=== PATIENT | female | born 1955 | race Caucasian/White ===

== ENCOUNTER 2025-01-24 10:55 | Emergency (ER) | payer MEDICARE, SELFPAY ==
[2025-01-24 11:04] VITALS: BP 115/78; PULSE 64; RESP 20; TEMP 36.7; O2SAT 100
--- OUTSIDE RECORDS SUMMARY | 2025-01-24 11:05 | XMS_ITS | Encounter Summary ---
Author Organization [facility] Address [address] [place] [address] Phone Care Team Providers Care Senior Reservations Agent Name Role Phone Kehinde Quezada MD Primary Care Provider Radha Wood [place] Primary Care Provider [phone] Kehinde Quezada MD Primary Care Provider Radha Wood [place] Primary Care Provider Altaf Gomez MD Unavailable Roxanne Ramirez MD Unavailable Radha Wood [place] Primary Care Provider Encounter Details Date Type Department Care Team (Late st Contact Info) Description 11/29/2016 Orders Only [facility] [address] [place] [address] Cinthya Pineda Social History Tobacco Use Types Packs/Day Years Used Date Smoking Tobacco: Former Cigarettes Q uit: 06/27/1994 Comments:Smoking History Pac ks/day: 0.5 Packs Alcohol Use Standard Drinks/Week Comments Yes 0 (1 standard drink = 0.6 oz pur e alcohol) Comments Unknown Sex and Gender Information Value Date Recorded Sex Assigned at Not on file Legal Sex Female 12:41 AM MEDIA CENTER ASSISTANT Gender Identity Not on file Sexual Orientation Not on file documented as of this encounter Plan of Treatment Not on file documented as of this encounter Visit Diagnoses Not on filedocumented in this encounter Additional Health Concerns Infection Onset Date Last Indicated Resolved Time COVID: Suspected 04/07/2022 04/07/2022 04/08/2022 3:07 AM CDT documented as of this encounter Care Teams Senior Reservations Agent Relationship Specialty Start Date End Date Kehinde Quezada MD PCP - General 09/24/16 11/01/17 Radha Wood NP PCP - General Family Medicine 11/02/17 11/20/17 Kehinde Quezada MD PCP - General 11/21/17 01/18/18 Radha Wood NP PCP - General Family Medicine 01/19/18 12/05/24 Radha Wood NP [address] [place] [address] PCP - General Family Medicine 12/06/24 Altaf Gomez MD [address] [facility] [address] [place] [id number] Consulting Physician Rheumatology 12/31/21 Roxanne Ramirez MD [address] [place] [address] Certification Engineer Obstetrics and Gynecology 12/31/21 documented as of this encounter
--- OUTSIDE RECORDS SUMMARY | 2025-01-24 11:05 | XMS_ITS | Encounter Summary ---
Author Organization [facility] Address [address] [place] [address] Care Team Providers Care Senior Ux Developer Name Role Phone Kehinde Quezada MD Primary Care Provider [phone] Radha Wood Primary Care Provider [phone] Radha Wood Primary Care Provider [phone] Reason for Visit * Reason Onset Date Comments Surgery Cancellation 04/23/2022 Encounter Details Date Type Department Care Team (Late st Contact Info) Description 04/23/2022 Telephone [facility] [address] [place] [address] Heber De La Cruz MD [address] [place], [place] [id number] Surgery Cancellation Social History Tobacco Use Types Packs/Day Years Used Date Smoking Tobacco: Former Cigarettes Q uit: 05/04/1995 Smokeless Tobacco: Never Alcohol Use Standard Drinks/Week Comments Not Currently 1 (1 standard drink = 0.6 oz pur e alcohol) Comments No Sex and Gender Information Value Date Recorded Sex Assigned at Not on file Legal Sex Female 6:59 AM EDUCATION AND OUTREACH COORDINATOR Gender Identity Not on file Sexual Orientation Not on file documented as of this encounter Functional Status * Is person deaf or have serious hearing difficulty? Answer Date of Assessment Author No 12/05/2020 2:21 AM CDT Zoran Banegas * Is person blind or have serious difficulty seeing? Answer Date of Assessment Author No 12/05/2020 2:21 AM CDT Zoran Banegasah * Does person have serious difficulty walking/climbing stairs? Answer Date of Assessment Author No 12/05/2020 2:21 AM CDT Zoran Banegas ejah * Does person have difficulty dressing/bathing? Answer Date of Assessment Author No 12/05/2020 2:21 AM CDT Zoran Banegasah * Does person have difficulty doing errands alone? Answer Date of Assessment Author No 12/05/2020 2:21 AM CDT Zoran Banegas documented as of this encounter Mental Status * Does person have difficulty concentrating/remembering/making decisions? Answer Entry Date Author No 12/05/2020 2:21 AM CDT Zoran Banegas documented in this encounter Miscellaneous Notes * Telephone Encounter - Ellyn Lucio - 04/23/2022 9:25 AM CDT Pt called in requesting to cx upcoming surgery due to not being able to get medical clearance priorto surgery. Pt states that she will be leaving town for the winter and will callback upon her return to [facility] surgery. Pt denies further needs at this time. documented in this encounter Plan of Treatment Not on file documented as of this encounter Goals Goal Patient Goal Type Associated Problems Recent Progress Patient-Stated? Author Medication Management General On track( 019 11:43 AM CDT) Rosina Sherwood, RN Note: Expected end date: Ongoing Interventions: Take all medications as prescribed Let your doctor know right away about any changes in your medications Make sure to request a refill of your medication at least one week prior to your last dose documented as of this encounter Visit Diagnoses Not on filedocumented in this encounter Care Teams Senior Ux Developer Relationship Specialty Start Date End Date Kehinde Quezada MD PCP - General Family Medicine 07/17/18 07/27/22 Radha Wood APRN-CNP PCP - General 07/28/22 08/25/22 Radha Wood APRN-CNP PCP - General Nurse Practitioner Family 08/26/22 documented as of this encounter
--- OUTSIDE RECORDS SUMMARY | 2025-01-24 11:05 | XMS_ITS | Encounter Summary ---
Author Organization [facility] Address [address] [facility] [place] [address] Care Team Providers Care Airplane Pilot Supervisor Name Role Phone Radha Wood SARMAD-PSYCHIATRIC RN Primary Care Provider [phone] Reason for Visit * Reason Onset Date Comments Treatment 05/10/2024 Seeking Nurse ca ll to discuss lower abdominal pain with; dark urine and back pain, pls call to assist, thank you. Encounter Details Date Type Department Care Team (Late st Contact Info) Description 05/10/2024 Telephone [facility] [address] [address] [place] [address] Heber De La Cruz MD [address] [place] [address] Treatment (Seeking Nurse call to discuss lower abdominal pain with; dark urine and back pain, pls call to assist, thank you.) Social History Tobacco Use Types Packs/Day Years Used Date Smoking Tobacco: Former Cigarettes Q uit: 05/04/1995 Smokeless Tobacco: Never Alcohol Use Standard Drinks/Week Comments Yes 1 (1 standard drink = 0.6 oz pur e alcohol) very rare Comments No Sex and Gender Information Value Date Recorded Sex Assigned at Not on file Legal Sex Female 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 Answer Date of Assessment Author No 12/05/2020 2:21 AM Zoran Mcguire * Is person blind or have serious difficulty seeing? Answer Date of Assessment Author No 12/05/2020 2:21 AM Zoran Mcguire * Does person have serious difficulty walking/climbing stairs? Answer Date of Assessment Author No 12/05/2020 2:21 AM Zoran Mcguire * Does person have difficulty dressing/bathing? Answer Date of Assessment Author No 12/05/2020 2:21 AM Zoran Mcguire * Does person have difficulty doing errands alone? Answer Date of Assessment Author No 12/05/2020 2:21 AM Zoran Mcguire documented as of this encounter Mental Status * Does person have difficulty concentrating/remembering/making decisions? Answer Entry Date Author No 12/05/2020 2:21 AM Zoran Mcguire documented in this encounter Miscellaneous Notes * Telephone Encounter - Ismael Rowley RN - 05/10/2024 9:50 AM CST C/o pain inner pelvic area, left pelvic bone for most of the year. PCP made aware, ordered CT. Found renal cysts and colon full of stool, but nothing else. Dark urine since spring or summer. Urine has been dark colored since spring or early summer. Describes orangy brown color. Able to get urine to turn light yellow w/ recent colonoscopy prep. Drinks 48- 64oz of water / day. Denies any medication that could turn urine this color. Thought issues could be colon related so called GI around October. Finally had Colonoscopy yesterday after one other failed attempt. Didn't find anything concerning. New onset Back pain started week ago about the waist area. Started w/ left hip area. Thought it could be arthritis so ignored at first. Pain traveling a little upward now. Denies fever, chills or antonella blood in urine. C/o feeling tired all the time. Denies nausea. Can eat w/out issues. Advised: Issues are concerning for kidney involvement, but may have other things going on. I recommend going to an ER or Urgent care that can do CT / Xrays. I would also call PCP with symptoms. Explained, Dr De La Cruz is Uro/material distributor so his specialty stops with the bladder. If you're having Kidney issues, you really need to see Urology or possible kidney doctor. Your PCP can guide you. She agrees to plan. In the meantime, can try a fluid challenge - drink enough to get urine to turn clear yellow. Make anote of how much it takes and this is how much you really need drink daily. TER * Telephone Encounter - Ismael Rodriguez - 05/10/2024 9:03 AM CST Seeking Nurse call to discuss lower abdominal pain with; dark urine and back pain, pls call to assist, thank you. TER documented in this encounter Plan of Treatment Not on file documented as of this encounter Goals Goal Patient Goal Type Associated Problems Recent Progress Patient-Stated? Author Medication Management General On track( 019 11:43 AM CDT) Rosina Sherwood RN Note: Expected end date: Ongoing Interventions: Take all medications as prescribed Let your doctor know right away about any changes in your medications Make sure to request a refill of your medication at least one week prior to your last dose documented as of this encounter Visit Diagnoses Not on filedocumented in this encounter Care Teams Airplane Pilot Supervisor Relationship Specialty Start Date End Date Radha Wood APRN-CNP PCP - General Nurse Practitioner Family 08/26/22 documented as of this encounter
--- OUTSIDE RECORDS SUMMARY | 2025-01-24 11:05 | XMS_ITS | Clinical Summary ---
Author Organization [facility] Address [address] [place] [address] Phone Care Team Providers Care Occupational Physician Name Role Phone Funmilayo Holloway APRN, RF TECHNICIAN Unavailable [phone] Radha Wood APRN, RF TECHNICIAN Primary Care Provider Allergies Active Allergy Reactions Criticality Noted Date Comments Codeine Hives,Diarrhea,Rash, Nausea ,Vomiting Prednisone Other (see Comments) High Severe headache Sulfa Antibiotics Hives,Rash High Medications pravastatin (PRAVACHOL) 40 MG Tablet Take 40 mg by mouth every evening. Active Adalimumab (HUMIRA) 40 MG/0.8ML Prefilled Syringe Kit by Subcutaneous route once a week. Tuesday due Active methotrexate 2.5 MG Tablet Take 25 mg by mouth every 7 days TAKES 2.5MG , 10 TABS Equals 25mg total once per week TUESDAY Active fish oil-omega-3 fatty acids 1000 MG Capsule Take 3,000 mg by mouth daily. Active Multiple Vitamin (MULTI-VITAMIN S) Tablet Take by mouth daily. Takes 2 chewables daily. Active Calcium Carb-Cholecalc iferol (CALCIUM + D3) 600-200 MG-UNIT Tablet Take 1 Tab by mouth daily. Active allopurinol (ZYLOPRIM) 300 MG Tablet Take 300 mg by mouth daily. Active meloxicam (MOBIC) 7.5 MG Tablet Take 15 mg by mouth daily. Active atenolol (TENORMIN) 50 MG Tablet Take 50 mg by mouth daily. Active nebivolol (BYSTOLIC) 2.5 MG Tablet Take 2.5 mg by mouth daily. Active triamterene-hy drochlorothiaz jocelin (DYAZIDE) 37.5-25 MG Capsule Take 1 Cap by mouth daily. 03/30/20 16 Active methocarbamol (ROBAXIN) 500 MG TabletIndicati ons:Musculoske letal Pain Take 500 mg by mouth daily. Indications: Musculoskeletal Pain Active temazepam (RESTORIL) 15 MG Capsule 15 mg nightly. 1 05/12/20 16 Active FLUoxetine (PROZAC) 20 MG CapsuleIndicat ions:Depressio n Take 20 mg by mouth daily. Indications: Depression 04/02/20 16 Active Pyridoxine HCl (VITAMIN B6) 200 MG Tablet Take 1 Tab by mouth daily. Active vitamin b-12 (CYANOCOBALAMI N) 500 MCG Tablet Take 500 mcg by mouth daily. Active hydroxychloroq uine (PLAQUENIL) 200 MG Tablet Take 200 mg by mouth 2 times daily. Active Probiotic Product (PROBIOTIC ADVANCED PO) Take 1 Tab by mouth daily. Active Cholecalcifero l (VITAMIN D-3) 400 UNIT Tablet Take 1 Tab by mouth daily. Active Calcium Carbonate-Lay min D (CALCIUM-VITAM IN D) 600-125 MG-UNIT Tablet Take 1 Tab by mouth 2 times daily. Active LORazepam (ATIVAN) 0.5 MG Tablet Take 0.5 mg by mouth nightly as needed. Active DULoxetine (CYMBALTA) [address] Particles 60 mg daily. 05/30/20 19 Active sucralfate (CARAFATE) 1 GM Tablet Take 1 g by mouth 4 times daily as needed. Active Hyoscyamine Sulfate SL 0.125 MG SL Tablet 0.125 mg by Sublingual route. 06/16/20 20 Active B Complex Vitamins (VITAMIN B COMPLEX PO) Take by mouth daily. Over the counter dosage pharmacy please review meds to clarify Active Dexilant 60 MG CAPSULE DELAYED RELEASE Take 60 mg by mouth daily. 90 Capsule 1 12/09/19 21 Active Active Problems Problem Noted Date Diagnosed Date Small bowel obstruction 12/04/2020 Dysphagia Wen's esophagus Ulcerative colitis Colon polyps Immunizations Immunization Administration Dates Next Due Influenza Vaccine, Quadrivalent, PF 04/09/2019 Influenza, Injectable, Quadrivalent 07/27/2016 Family History Medical History Relation Name Comments Cancer Brother Cancer Father skin cancer Diabetes Father Stroke Father Breast Cancer Mother Relation Name Status Comments Brother Alive Julianna'charley Diseas e Father Mother Alive Social History Tobacco Use Types Packs/Day Years Used Date Smoking Tobacco: Former Cigarettes 1 21 1 08/08/1973 - 06/07/1995 Smokeless Tobacco: Never Tobacco Cessation:Counseling Given: No Alcohol Use Standard Drinks/Week Comments Not Currently 1 (1 standard drink = 0.6 oz pur e alcohol) Sexually Active Control Partners Comments Not Currently Comments No Sex and Gender Information Value Date Recorded Sex Assigned at Not on file Legal Sex Female 9:48 PM CDT Gender Identity Not on file Sexual Orientation Not on file 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 Not on file Not on file Not on file Last Filed Vital Signs Vital Sign Reading Time Taken Comments Blood Pressure 126/77 02/22/2022 3:46 PM CDT Pulse 80 02/22/2022 3:46 PM CDT Temperature 36.6 C (97.8 F) 02/22/2022 10:49 AM CDT Respiratory Rate 18 02/22/2022 3:46 PM CDT Oxygen Saturation 98% 02/22/2022 3:46 PM CDT Inhaled Oxygen Concentration - - Weight 67.1 kg (148 lb) 02/22/2022 10:49 AM CDT Height 170.2 cm (5' 7) 02/22/2022 10:49 AM CDT Body Mass Index 23.18 02/22/2022 10:49 AM CDT Plan of Treatment Health Maintenance Due Date Last Done Comments Hepatitis C Virus (HCV) Screening 1955 Zoster Immunization (1 of 2) 02/06/1976 Cologuard 2002 Immunochemical Fecal Occult Blood 2002 Pneumococcal Immunization (50+ years) (1 of 1 - PCV) 2007 Respiratory Syncytial Virus (RSV) Immunization (Adult) (1 - Risk 60-74 years 1-dose series) 2017 Colonoscopy 09/27/2018 09/27/2016, 03/06/2014 Colorectal Cancer Screening 09/27/2018 SARS-COV-2 Immunization (3 - Moderna risk series) 12/12/2020 11/14/2020, 10/14/2020 Influenza Immunization (#1) 02/25/202504/27, 04/09/2019, 07/27/2016, Additional history exists DTaP/Tdap/Td Immunization Discontinued 2017, 01/08/2016, 02/09/2008 TdaP Immunization Completed 11/18/2017, 01/08/2016 Mammogram Discontinued 06/04/2020 Hepatitis B Immunization Aged Out No longer eligible based on patient's age to complete this topic Human Papillomavirus (HPV) Immunization Aged Out No longer eligible based on patient's age to complete this topic Meningococcal Immunization (ACWY) Aged Out No longer eligible based on patient's age to complete this topic Rotavirus Immunization Aged Out No lo nger eligible based on patient's age to complete this topic Procedures Procedure Name Priority Date/Time Associated Diagnosis Comments HM COLONOSCOPY Routine 03/06/2014 from Last 3 Months or Most Recently Relevant to Health Maintenance Results * HM COLONOSCOPY (03/06/2014) Sarita Majano DO PROCEDURE/MINOR SURGICAL ORDERABLES Final Result from Last 3 Months or Most Recently Relevant to Health Maintenance Insurance [facility] [[email or web address]] MEDICARE C AET[employer] Advance Directives Documents on File Type Date Recorded Patient Airplane Rigger Expl jose Living Will 06/24/2017 9:03 AM [place] Declaration Other Advance Directive 06/24/2017 9:02 AM Self-Proving Affidav it Power of Geographic Analyst for Health Care 06/24/2017 9:01 AM [place] POA For Healthcare * Full Code (Latest Code Status on File) Date Activated Date Inactivated Comments 12/04/2020 10:03 PM 12/05/2020 1:32 PM CPR-Full Tr eatment: FULL ARREST: Attempt Resuscitation/CPR wit intubation and mechanical ventilation. PRE-ARREST: Use entire range of life support measures to stabilize the patient. * Full Code Date Activated Date Inactivated Comments 12/04/2020 7:58 PM 12/04/2020 10:03 PM CPR-Full Tr eatment: FULL ARREST: Attempt Resuscitation/CPR wit intubation and mechanical ventilation. PRE-ARREST: Use entire range of life support measures to stabilize the patient. Care Teams Occupational Physician Relationship Specialty Start Date End Date Radha Wood APRN, RF TECHNICIAN 2 [facility] [address] [address] PCP - General Advanced Practice Nurse 02/22/22 Funmilayo Holloway APRN, RF TECHNICIAN Nurse Practitioner Advanced Practice Nurse 06/10/16
--- OUTSIDE RECORDS SUMMARY | 2025-01-24 11:05 | XMS_ITS | Clinical Summary ---
Author Organization [facility] [employer] Address [address] [place] [address] Care Team Providers Care Entry Level Staff Accountant Name Role Phone Radha Wood SARMAD-STRUCTURAL STEEL TRADES WORKER Primary Care Provider [phone] Source Comments [facility],non-owned Affiliates and Associated Physician Practices is amultiple site organization consisting of ambulatory clinics and hospital sitesin [place], [place], [place] and [place]. This disclosure is being madepursuant to the Care Everywhere program and may not contain all information available regarding this patient. Last updated 18.[facility] Allergies Active Allergy Reactions Criticality Noted Date Comments Codeine Other 07/25/2012 CHEST DISCOMFORT Prednisone Headache,Nausea and/ or Vomiting,Other,Vomiting High Severe headache Reaction: Nausea, Vomiting, , Reaction: nausea & other symptoms, Sulfa Drugs Rash Low 07/25/2012 Medications * Be aware that medications may not be up to date on this document. Alwaysverify current medications with the patient. FLUoxetine (PROZAC) 20 MG capsule Take 1 (one) capsule by mouth once daily Active methotrexate 2.5 MG tablet Take 10 (ten) tablets by mouth every 7 days Active Windthorst-3 Fatty Acids (OMEGA-3 FISH OIL) 1000 MG capsule Take 3 (three) capsules by mouth once daily Active temazepam (RESTORIL) 15 MG capsule Take 1 (one) capsule by mouth nightly as needed for Insomnia Active Multiple Vitamins-Minera ls (BARIATRIC MULTIVITAMINS/I HERNNA PO) Take by mouth once daily Active allopurinol (ZYLOPRIM) 300 MG tablet Take 1 (one) tablet by mouth once daily 03/30/2020 Active methocarbamol (ROBAXIN) 500 MG tablet 1 (one) tablet nightly as needed 04/23/2020 Active sucralfate (Carafate) 1 GM/10ML suspension Take 10 mL by mouth 4 times daily 1200 mL 2 05/05/2022 Active hydroxychloroqu ine (Plaquenil) 200 MG tablet Take 1 (one) tablet by mouth once daily 07/25/2022 Active DULoxetine (Cymbalta) 60 MG capsule 08/14/2022 Active oxyCODONE, immediate release, (Roxicodone) 5 MG tabletIndicatio ns:Postoperativ e state Take 1 (one) tablet by mouth every 4 hours as needed for Pain 10 tablet 09/01/2022 Active polyethylene glycol 3350 (Miralax) 17 GM/SCOOP powder Take 17 (seventeen) g by mouth once daily 289 g 09/01/2022 Active ibuprofen (Motrin) 600 MG tablet Take 1 (one) tablet by mouth every 6 hours as needed for Pain 20 tablet 1 09/01/2022 Active pantoprazole EC (Protonix) 40 MG tablet TAKE 1 TABLET TWICE A DAY 180 tablet 07/07/2023 Active Active Problems Problem Noted Date Diagnosed Date S/P gastric bypass 07/17/2018 Encounters Date Type Department Care Team Description 11/06/2024 12:27 PM CDT - 11/06/2024 11:59 PM CDT Hospital Encounter [facility] Imaging Services - Radiology [address] [place], [place] [id number] Discharge Disposition: Home or Self Care from Last 3 Months Immunizations Immunization Administration Dates Next Due INFLUENZA VACCINE, TRIV. (AF LURIA, FLUZONE TRIVALENT; 6MO+) (IIV3) 03/29/2014,04/04/2009 FLU VACCINE QUAD IIV4 SPLIT 0.25 ML IM 07/27/2016 INFLUENZA VACCINE 07/27/2012 INFLUENZA VACCINE, QUADR. (F LUZONE; FLULAVAL; FLUARIX; AFLURIA QUADRIVALENT; 6MO+), 0.5 ML (IIV4) 04/09/2019 RABIES VACCINE IM FIBROBLAST CULTURE ,12/02/2017,11/23/2017,2017,11/18/2017 TDAP (7yrs+) 11/18/2017,01/08/2016 Td (Adult), 2 Lf Tetanus Tox oid, Adsorbed, Pf 02/09/2008 Family History Medical History Relation Name Comments Diabetes Father Cancer - Breast Mother Hypertension Mother Osteoporosis Mother Other Mother A-fib Relation Name Status Comments Father Mother Social History Tobacco Use Types Packs/Day Years Used Date Smoking Tobacco: Former Cigarettes Q uit: 05/04/1995 Smokeless Tobacco: Never Tobacco Cessation:Counseling Given: Not Answered Alcohol Use Standard Drinks/Week Comments Yes 1 (1 standard drink = 0.6 oz pur e alcohol) very rare Comments No Sex and Gender Information Value Date Recorded Sex Assigned at Not on file Legal Sex Female 6:59 AM PUBLISHING DIRECTOR Gender Identity Not on file Sexual Orientation Not on file Last Filed Vital Signs Vital Sign Reading Time Taken Comments Blood Pressure 125/82 09/01/2022 12:04 PM PUBLISHING DIRECTOR Pulse 63 09/01/2022 12:04 PM PUBLISHING DIRECTOR Temperature 36.5 C (97.7 F) 09/01/2022 10:25 AM PUBLISHING DIRECTOR Respiratory Rate 16 09/01/2022 12:04 PM PUBLISHING DIRECTOR Oxygen Saturation 98% 09/01/2022 12:04 PM PUBLISHING DIRECTOR Inhaled Oxygen Concentration - - Weight 71.2 kg (157 lb) 09/01/2022 7:00 AM PUBLISHING DIRECTOR Height 170.2 cm (5' 7) 09/01/2022 7:00 AM PUBLISHING DIRECTOR Body Mass Index 24.59 09/01/2022 7:00 AM PUBLISHING DIRECTOR Plan of Treatment Health Maintenance Due Date Last Done Comments COLOGUARD (AGES 45-75) - COLON CA SCREENING 1957 CT COLONOGRAPHY - COLON CA SCREENING 1955 FIT - COLON CA SCREENING 1957 FLEX SIG - COLON CA SCREENING 1955 HEPATITIS C SCREENING 02/01/1975 PNEUMOCOCCAL VACCINE 50+ (1 of 1 - PCV) 2007 ZOSTER VACCINE (1 of 2) 2007 LIPID TESTING 07/08/2014 07/08/2009, 06/01/2009, 05/29/2008 COVID-19 VACCINE ( season) 2024 11/14/2020, 10/14/2020 DEPRESSION SCREENING 06/27/2024 MEDICARE AWV CALENDAR YEAR 2024 MAMMOGRAM 07/21/2024 07/21/2022, 06/28, 05/18/2021, Additional history exists INFLUENZA VACCINE (#1) 2025 , 05/11/2021, 04/09/2019, Additional history exists DTAP/TDAP/TD VACCINES (3 - Td or Tdap) 11/19/2027 11/18/2017, 01/08/2016, 02/09/2008 Respiratory Syncytial Virus (RSV) Vaccine Pt: or over 60 yrs (1 - 1-dose 75+ series) 02/06/2032 COLON MONITORING 05/09/2034 05/09/2024 COLONOSCOPY - COLON CA SCREENING 05/09/2034 05/09/2024, 09/27/2016 (Done Outside Per Report) Colorectal Cancer Screening 05/09/2034 BONE DENSITY TESTING Completed 06/04/2024, 04/22/20 22 HEPATITIS B VACCINE Aged Out No longe r eligible based on patient's age to complete this topic HIB VACCINE Aged Out No longer eligi ble based on patient's age to complete this topic HPV VACCINE Aged Out No longer eligi ble based on patient's age to complete this topic MENINGOCOCCAL (Group B) VACCINE SHARED DECISION-MAKING Aged Out No longer eligible based on patient's age to complete this topic MENINGOCOCCAL GROUPS A/C/Y/W VACCINE Aged Out No longer eligible based on patient's age to complete this topic Goals Goal Patient Goal Type Associated Problems Recent Progress Patient-Stated? Author Medication Management General On track( 019 11:43 AM CDT) No Rosina Patel, RN Note: Expected end date: Ongoing Interventions: Take all medications as prescribed Let your doctor know right away about any changes in your medications Make sure to request a refill of your medication at least one week prior to your last dose Medical Devices Implanted Type Area Hospitality Host Device Identifier Shelf Expiration Date Model / Serial / Lot Grft Tiss Rep Xenform 4 X 7cm Implanted:Qty: 1 on 07/26/2012 by Heber De La Cruz MD at [facility] N/A: Vagina [employer] 05/27/2014 [id number] 0 / [id number] / [id number] Dev Sys Sgl Obtryx - [id number] Implanted:Qty: 1 on 07/26/2012 by Heber De La Cruz MD at [facility] N/A: Vagina 03/27/2015 [id number] 0 / [id number] / [id number] Bulkamid Implanted:Qty: 1 on 09/01/2022 by Heber De La Cruz MD at [facility] N/A: [employer] 04/26/2025 [id number] / / [id number] Procedures Procedure Name Priority Date/Time Associated Diagnosis Comments XR LUMBAR SPINE 2 OR 3VW Routine 11/06/2024 12:49 PM CDT Rheumatoid arthritis with rheumatoid factor of 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 Edited by Kaylen Hudson on 11/06/2024 1:14 PM > Interpreting Provider: Vincent Maria MD on 11/06/2024 1:38 PM Narrative 11/06/2024 1:38 PM CDT PROCEDURE: XR LUMBAR SPINE 2 OR 3VW DATE/TIME OF EXAM: 11/06/2024 12:49 PM INDICATION: M05.79: Rheumatoid arthritis with rheumatoid factor of multiple sites without organ or systems involvement (HCC). G47.00: Insomnia, unspecified. M54.50: Low back pain, unspecified. Additional History: COMPARISON: None. FINDINGS: Three views of the lumbar spine show right convex thoracolumbar scoliosis. Bony demineralization is present. Endplate degenerative changes are present. There is intervertebral disc space narrowing of L2-3 and L3-4. No definite acute displaced fracture or subluxation is present. Surgical clips are seen in the abdomen. Procedure Note Vincent Maria MD - 11/06/2024 PROCEDURE: XR LUMBAR SPINE 2 OR 3VW DATE/TIME OF EXAM: 11/06/2024 12:49 PM INDICATION: M05.79: Rheumatoid arthritis with rheumatoid factor ofmultiple sites without organ or systems involvement (HCC). G47.00: Insomnia, unspecified. M54.50: Low back pain, unspecified. Additional History: COMPARISON: None. FINDINGS: Three views of the lumbar spine show right convex thoracolumbarscoliosis. Bony demineralization is present. Endplate degenerative changes are present. There is intervertebral disc space narrowing of L2-3 and L3-4.No definite acute displaced fracture or subluxation is present. Surgicalclips are seen in the abdomen. IMPRESSION: Scoliosis and degenerative changes. Edited by Kaylen Hudson on 11/06/2024 1:14 PM > Interpreting Provider: Vincent Maria MD on 11/06/2024 1:38 PM Racheal Camarena REFRACTORY WORKER-STRUCTURAL STEEL TRADES WORKER DIAGNOSTIC IMAGING ORDE JESSE Final Result * LIPID PROFILE (07/08/2009 10:25 AM PUBLISHING DIRECTOR) Cholesterol 191 120.0 - 200.0 mg/dl [facility] Triglycerides 114 0.0 - 250.0 mg/dl [facility] HDL Cholesterol 44 >40 mg/dl [facility] LDL Calculated 124.2 mg/dl [facility] Chol HDL Ratio 4.3 [facility] Comment Lipid [facility] Comment: Risk Classification HDL CHOL LDL CHOL TOTAL CHOL According to NCEP (mg/dl) (mg/dL) (mg/dl) Desirable >40 <130 < 200 Borderline/High - 130-159 200-239 High - >159 > 239 The total cholesterol to HDL cholesterol ratio may be used to predict risk for coronary heart disease in untreated patients according to data reported from the [place] Study by Chino Yanick, M.D. The predictive value in patients over 60 years of age is uncertain. Risk TOTAL CHOL/HDL RATIO MEN WOMEN 1/2 Average 3.43 3.27 Average 4.97 4.44 2X Average 9.55 7.05 3X Average 23.39 11.04 In Coronary Artery Disease patients, in whom nonpharmacological therapy has failed, the AHA recommends that drug therapy should be prescribed to lower LDL cholesterol to <100mg/dL. Drug therapy may be instituted in patients with HDL <35mg/dL. The reported LDL is a calculated result. For a more precise measurement, a direct LDL test is available, as necessary. BLOOD SPECIMEN / Unknown 07/08/2009 10:25 AM PUBLISHING DIRECTOR 07/08/2009 10:31 AM PUBLISHING DIRECTOR Edgar Ocasio MD LAB - CHEMISTRY ORDERABLE S Final Result [facility] [address] [place] [address] from Last 3 Months or Most Recently Relevant to Health Maintenance Insurance [address] [place] [id number] A[employer] MEDICARE ADV [address], [place] [id number] [facility] Advance Directives * Full Code (Latest Code Status on File) Date Activated Date Inactivated Comments 07/17/2018 8:44 PM 07/18/2018 6:52 PM * FULL RESUSCITATION Date Activated Date Inactivated Comments 07/26/2012 4:55 PM 07/27/2012 4:02 PM * FULL RESUSCITATION Date Activated Date Inactivated Comments 07/26/2012 11:47 AM 07/26/2012 4:55 PM Care Teams Entry Level Staff Accountant Relationship Specialty Start Date End Date Radha Wood APRN-BOSSMAN PCP - General Nurse Practitioner Family 08/26/22
--- OUTSIDE RECORDS SUMMARY | 2025-01-24 11:05 | XMS_ITS | Encounter Summary ---
Author Organization [facility] Address [address] [facility] [place] [address] Phone Care Team Providers Care Tungsten Refiner Name Role Phone Funmilayo Holloway APRN, PROJECT DRILLING ENGINEER Unavailable [phone] Kehinde Quezada MD Primary Care Provider Radha Wood APRN, PROJECT DRILLING ENGINEER Primary Care Provider Reason for Visit * Reason Comments Medication Refill Encounter Details Date Type Department Care Team (Late st Contact Info) Description 05/26/[address] [facility] - Gastroenterology - [address] [place] [address] Lashaun Schwartz Evelyn, PAC [address] [place] [address] Medication Refill Social History Tobacco Use Types Packs/Day Years Used Date Smoking Tobacco: Former Cigarettes 1 21 1 08/08/1973 - 06/07/1995 Smokeless Tobacco: Never Alcohol Use Standard Drinks/Week [...] file Not on file Not on file documented as of this encounter Miscellaneous Notes * Telephone Encounter - Lorraine Welch, RN - 05/26/2020 1:11 PM CST Pharmacy requesting: Requested Prescriptions Pending Prescriptions Disp Refills ??? Dexilant 60 MG CAPSULE DELAYED RELEASE [Pharmacy Med Name: DEXILANT DR CAPS 60MG] 30 Cap 11 Sig: TAKE 1 CAPSULE DAILY Last refill from office: 03/18/20 Last filled at pharmacy: 03/19/20 Last OV: 06/11/19 Next OV: 06/16/20 YMAN documented in this encounter Plan of Treatment Not on file documented as of this encounter Visit Diagnoses Not on filedocumented in this encounter Additional Health Concerns Infection Onset Date Last Indicated Resolved Time COVID - 19 12/04/2020 12/04/2020 12/05/2020 6:47 AM CDT Respiratory Rule-Out 12/04/2020 12/04/2020 021 4:30 PM CDT documented as of this encounter Care Teams Tungsten Refiner Relationship Specialty Start Date End Date Kehinde Quezada MD [address] [place] [address] PCP - General Family Medicine 09/27/16 02/21/22 Radha Wood CLIMATOLOGY PROFESSOR, PROJECT DRILLING ENGINEER [address] [place] [address] [address]AI[address] [place] [id number] PCP - General Advanced Practice Nurse 02/22/22 Funmilayo Holloway APRN, PROJECT DRILLING ENGINEER Nurse Practitioner Advanced Practice Nurse 06/10/16 documented as of this encounter
--- OUTSIDE RECORDS SUMMARY | 2025-01-24 11:05 | XMS_ITS | Patient Health Record ---
Author Organization [facility] [employer] Address [address] [place] [address] Care Team Providers Care Miniature Set Builder Name Role Phone Azam Borrego Unavailable [phone] Reason For Referral No Information Medications Medication SIG (Take, Route, Fr equency, Duration) Notes Start Date End Date Status FLUoxetine HCl 40 MG Oral 03/27/2019 Active Multivitamin Adults Oral 03/27/2019 Active LORazepam 0.5 MG Oral 03/27/2019 Ac tive Plan Of Treatment No Information Insurance Providers Payer Name Payer Address Payer Phone Subscriber Number Group Number Insured Name Patient Relationship to Insured Coverage Start Date Coverage End Date [employer]cbs-[place] -do not use [address] [address] [place] [address] [id number] MORAIMA JEFFREY Self - patient is the insured Medical (General) History Surgical History Surgery Date(Month/Year) Cholecystectomy ([id number])
--- OUTSIDE RECORDS SUMMARY | 2025-01-24 11:05 | XMS_ITS | Referral Summary ---
Author Organization [facility] Address [address] [place] [address] Care Team Providers Care Registration Specialist Name Role Phone Altaf Gomez MD Unavailable [phone] Roxanne Ramirez MD Unavailable Radha Wood NP Primary Care Provider [phone] Encounters Date Type Department Care Team Description 01/24/2025 Nurse Triage [facility] Primary Care at [address] [address] Radha Wood NP 11/29/2024 Results Follow-Up [facility] Medical [facility] Primary Care at [address] [address] Teresa Koehler NP Screening Mammogram Bilateral W Car 11/29/2024 2:55 PM CDT - 11/29/2024 11:59 PM CDT Hospital Encounter [facility] [address] [place] [address] Discharge Disposition: Discharge to home or self care 11/23/2024 10:00 AM CDT Office Visit [facility] [address] [facility] [address] [place] [id number] Lena Brito MD Psychophysiological insomnia (Primary Dx); KRYS (obstructive sleep apnea); Hypersomnia with sleep apnea from Last 3 Months Allergies Active Allergy Reactions Criticality Noted Date Comments Codeine Rash,Chest tightness,Diarrhea,H kiki,Nausea only,Vomiting Medium 07/25/2012 CHEST DISCOMFORT Reaction: Rash, Prednisone Nausea only,Vomiting,Other (See comments),Headache,N ausea & Vomiting High Severe headache Reaction: Nausea, Vomiting, , Reaction: nausea & other symptoms, Severe headache Reaction: Nausea, Vomiting, , Reaction: nausea & other symptoms, Sulfa (Sulfonamide Antibiotics) Rash Reaction: rash, , Reaction: Rash, , Reaction: Rash, Sulfanilamide Medications multivitamin tablet tablet Take one by mouth one time per day 0 0 05/19/2009 Active methotrexate 2.5 mg tablet 10 weekly 0 0 05/28/[address] (PROTONIX) 40 mg EC tablet 03/26/[address] (VOLTAREN) 75 mg EC tablet Take 2 tablets (150 mg total) by mouth 2 (two) times a day 05/18/2023 Active sulfaSALAzine (AZULFIDINE) 500 mg tablet Take 2 tablets (1,000 mg total) by mouth 2 (two) times a day 05/14/[address] (CYMBALTA) 60 mg capsule Take 1 capsule (60 mg total) by mouth daily 90 capsule 3 06/08/2023 Active docosahexaenoic acid-epa (Fish OiL) 120-180 mg capsule Take by mouth Active FLUoxetine (PROzac) 20 mg capsule TAKE 1 CAPSULE DAILY 90 capsule 3 05/28/2024 Active Active Problems Problem Noted Date Diagnosed Date Dental abscess 09/18/2024 Ulcerative (chronic) proctitis without complicat ions 05/15/2024 Hx of colonic polyps 03/05/2024 Left sided abdominal pain 08/31/2023 Assessment & Plan (12/24/2023 8:44 PM CDT): Left sided abdominal pain in the mornings with taking pills, better after eating, no reflux, heartburn, dysphagia or odynophagia Takes pantoprazole 40 mg BID 2-3 small BM's daily with incomplete evacuation No melena or hematochezia 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 Feels hungry even after eating, gaining weight again No NSAID use No known family history of colon cancer, liver disease, inflammatory bowel disease, or other GI pathologies No smoking, ETOH or illicit drug use Annual EGD's since 2016 for long segment of Barretts esophagus C4M5 without dysplasia Most recent EGD from 12/2020 showed normal esophagus, gastric bypass pouch 4.5 cm in length with healthy-appearing GJ anastomosis Colonoscopy from 09/2016 showed one tubular adenoma in cecum and normal colon bx Labs from 08/2023 showed mildly elevated BUN of 41 otherwise normal CMP, macrocytosis without anemia CT abdomen pelvis without contrast 08/2023 showed large stool burden and short-segment of dilated loop of small bowel in the left upper quadrant with contrast seen distal to the segment, similar to findings from 2019 Plan Supposedly was diagnosed with UC previously, last colonoscopy from 2016 showed normal colon bx, however patient was on Humira that time for RA Pain could be from marginal ulcer, gastritis, constipation, visceral hypersensitivity Currently on Simponi, sulfasalazine, MTX and placquenil that should all cover UC, so it is less likely her pain is from that. Will schedule colonoscopy for further evaluation. Will obtain recent labs from chief marketing officer office Assessment & Plan (08/31/2023 3:29 PM GTA): CBC CMP and urinalysis will be done today. Differential includes UTI, adhesions, diverticulitis, UC. I suspect diverticulitis but she has no history. Order CT abdomen and pelvis stat, likely be done tomorrow since he is later in the afternoon but patient is stable at this time. Will call patient with results KRYS (obstructive sleep apnea) 08/15/2023 Chronic left-sided low back pain with left-sided sciatica 12/02/2022 Assessment & Plan (12/02/2022 8:23 PM CDT): Was told by rheumatology that her pain was sciatica. Will start with x-ray of lumbar spine. Decreased pedal pulses 11/02/2022 Assessment & Plan (11/02/2022 10:28 AM CDT): TANA US ordered, will follow. PAD (peripheral artery disease) 09/14/2022 Assessment & Plan (11/02/2022 10:29 AM CDT): H/o mild PAD. US TANA ordered. Incomplete right bundle branch block (RBBB) 0 01/2022 Assessment & Plan (01/01/2022 2:59 PM CDT): Abnormal EKG, referred on to cardiology for further evaluation management. Slow transit constipation 05/11/2021 Assessment & Plan (05/11/2021 1:43 PM GTA): Gave copy of constipation guidelines. Recommended milk of magnesia in Prune juice warmed up. Recommended MiraLax daily. Moderate episode of recurrent major depressive d isorder 03/07/2019 Assessment & Plan (06/12/2023 1:47 PM GTA): Stable. Continue duloxetine. Assessment & Plan (11/30/2022 4:03 PM CDT): Stable on current medication. Continue duloxetine and fluoxetine as ordered. May follow up in 6 months Assessment & Plan (07/27/2022 8:54 PM GTA): Stable on current medication. Seeing Surjit [place], psychiatrist. Assessment & Plan (04/10/2022 7:21 PM CDT): Stable. Sees psychiatry. Refilled fluoxetine Assessment & Plan (05/11/2021 1:47 PM GTA): Stable on current medication. Continue lorazepam and duloxetine and Prozac. as ordered. May follow up in 6 months Assessment & Plan (05/16/2019 9:26 AM GTA): Improving. She has been able to make some life decisions for herself. I encouraged her to get her brother and sister on board to help with care of her mother and wished her luck. She is going to let me know her needs for follow-up care Assessment & Plan (04/09/2019 9:42 AM CDT): Will keep her on Cymbalta 20 mg once daily. Will re-at fluoxetine 10 mg once daily. Will also renew lorazepam 0.5 mg b.i.d. P.r.n.. She has already looked that Memory Care units for her mother. She has the support of her brother to put her mother in memory care but she knows this is going to be a hard process and she is concerned about the back lash from her mother. Her goal is within the next 6-12 months to have her mother placed. Will have her follow up in another 1 month for recheck. She is also called her insurance for list of providers that take her insurance for Psychiatry Assessment & Plan (03/08/2019 4:12 PM CDT): Thinks seeing a counselor and psychiatrist is a good idea. Will place referral. Will decrease prozac to 20mg x 14 days. Will start effexor xr 75mg daily . Have her f/u in 1 month for recheck S/P gastric bypass 07/17/2018 Assessment & Plan (03/13/2020 1:55 PM CDT): Between the bypass and covid patient has lost a considerable amount of weight. I do not feel anything unusual other than her normal anatomy. I believe she is feeling her normal coccyx. Reassurance given this is not unusual after weight loss Annual physical exam 12/02/2017 Assessment & Plan (06/12/2023 1:50 PM GTA): -Recommended: Healthy, prudent diet. Avoiding junk food/fast food. -30 minutes of exercise most days of the week. Increase to 45 minutes for weight loss. -Mammogram every 1 year, starting at age 40; regular self breast & skin examinations (1 week after cycle begins) -Regular gynecologic examinations with pelvic exam & PAP smear every 3-5 years if you have not had a hysterectomy (does have a shipping specialist), -Periodic blood pressure monitoring, & bone-density testing (starting at age 65 in average-risk person) -Colonoscopy at age 47 and further colonoscopys pending GI recs. , alternative cologuard Up to date -Influenza vaccine every year given today Up to date, see immunization history -F/u in 1 year for Annual PE or sooner if needed -Labs as ordered Anxiety 11/29/2016 Assessment & Plan (11/30/2022 4:03 PM CDT): Stable with duloxetine and fluoxetine. Patient has not been using lorazepam very often as she mostly uses Restoril at bedtime for sleep. Assessment & Plan (03/19/2019 10:03 AM CDT): Difficult to say whether she is having side effects from decreasing the Prozac or from starting Effexor. Will have her finish out the 2 doses of Prozac 20 milligrams. Then decrease her to Prozac 10 milligrams daily for another 14 days. Will have her stop the Effexor 75 milligrams. I told her our goal is to get her off the Prozac since it seemed to not be working for her previously. She mentioned her daughter is on Cymbalta and does well with that. Will go ahead and try Cymbalta started her on 20 milligrams daily. I think this will get her through to seeing the psychiatrist nurse practitioner at the beginning of March. She may call or come in before then if needed. Patient changes and follow-up if needed Assessment & Plan (09/11/2018 8:38 PM CDT): Continue current medications. Assessment & Plan (06/14/2018 4:32 PM GTA): Will continue Prozac at current dosage. Discuss trying lorazepam to take as needed. Her discussed when to take medication. Patient voiced understanding follow-up for next regular visit Assessment & Plan (03/15/2018 10:06 AM CDT): Patient believes that she is going to try to move back home for while. She only lives a mi away so she can come over in the morning and make sure she takes her medication. She works from home in the evenings from 06/28 11:00 p.m.. She could have her brother or her daughter come over in the evening to give her mother her evening medications. Her mother it tends to sleep all night and does not cause problems at night. We will also increase her Zoloft to 1 and half tablets daily. She is sees the lorazepam every so often for anxiety. Will have her follow up in 3 months as needed. Assessment & Plan (02/10/2018 6:36 PM CDT): She has been on fluoxetine for quite a few years. I discussed options with her. I do not believe it is working. I am going to decrease to fluoxetine to 20 mg for week and then 10 mg for week will starting sertraline 50 mg x1 week and then 100 mg daily. I also discussed using lorazepam with her. Discussed proper use of medication and when to use medication. Patient voiced understanding. Will follow up in 1 month for recheck and call in interim if needed Assessment & Plan (11/29/2016 10:15 AM CDT): Continue prozac 40mg. F/u 6 months and as needed Primary insomnia 11/29/2016 Assessment & Plan (06/12/2023 1:46 PM GTA): Stable. It is improved with restoril 15mg. Asking about increasing it, but I'm hesitant since she still takes tramadol occasionally and still has lorazepam to take occasionally as well. States that restoril 15mg does seem to help. She gets around 6-7 hours of sleep, but tends to wake up. Assessment & Plan (11/30/2022 4:03 PM CDT): Improved with using Restoril at bedtime. Will continue current medications.I checked their [place] ASSIST[employer] STORE MANAGER TRAINEE sheet, and it was consistent with prescribed medications. Assessment & Plan (07/27/2022 8:59 PM GTA): Continues restoril at bedtime which was helping. However, started taking plaquenil at bedtime when she could no longer afford copay on humira. Addition of Plaquenil at bedtime has caused more insomnia. She took a lorazepam to help, but pharmacist told her not to mix those. I also warned not to mix lorazepam and temazepam. Pt is aware. She is going to try moving plaquenil dose to daytime and see if it makes any difference for her. Otherwise will discuss insomnia with psychiatrist, Dr. Gomes Assessment & Plan (05/11/2021 1:48 PM GTA): Continues on temazepam at bedtime. I checked their [place] [employer]IST[employer] STORE MANAGER TRAINEE sheet, and it was consistent with prescribed medications. Assessment & Plan (03/13/2020 1:58 PM CDT): Will decrease temazepam dose in half. Patient will call if she has any problems or concerns Assessment & Plan (11/29/2016 10:15 AM CDT): Continue temazepam 22.5mg. Sleeping well on this. Taking appropriately. F/u 6 months and as needed Actinic keratosis 11/29/2016 Assessment & Plan (11/29/2016 12:57 PM CDT): Options discussed with patient including OTC remedies, watchful waiting and in office treatment. The risk and benefits of freezing in the office was discussed; patient would like to proceed. Multiple lesions were frozen three times with liquid nitrogen with good freeze/thaw cycles. Pt tolerated the procedure well. Pt to keep areas clean and dry. Pt advised to anticipate redness and tenderness. Ulcerative colitis 06/17/2015 Overview (05/30/2017): UC - Ulcerative colitis Osteopenia 05/28/2014 Overview (09/30/2016): Osteopenia Mixed hyperlipidemia 11/10/2013 Overview (09/30/2016): HYPERLIPIDEMIA NEC/NOS Assessment & Plan (06/12/2023 1:47 PM GTA): Lipid abnormalities are stable. Pharmacotherapy as ordered. Lipids will be reassessed in 6 months. Assessment & Plan (11/30/2022 4:05 PM CDT): Patient is not currently on medication. Her lipid panel is normal with an LDL of 80. She is going to see Dr. Soria, cardiology. Assessment & Plan (07/27/2022 8:54 PM GTA): Lipid abnormalities are stable, reviewed previous lipid levels in [facility]. Pharmacotherapy as ordered. Order for lipid panel was given today to be obtained. Pt voiced understanding of lab drawn and continuation of current medication regimen. Assessment & Plan (11/11/2021 1:12 PM CDT): Stable - continue current regimen - will recheck labs Assessment & Plan (05/11/2021 1:43 PM GTA): Stable. Last lipid panel in January 2021. No longer on medication. Will continue to monitor Assessment & Plan (10/13/2020 2:35 PM CDT): Lipid abnormalities are stable, reviewed previous lipid levels in [facility]. Diet controlled - with weight loss since gastric Bypass revision. Order for lipid panel was given today to be obtained. Pt voiced understanding of lab drawn and continuation of current medication regimen. Assessment & Plan (09/11/2018 8:37 PM CDT): Lipid abnormalities are unchanged. Pharmacotherapy as ordered. Lipids will be reassessed today - pt has orders from bariatric surgeon for lipids and cmp. I asked her to have labs copied to me for our records as well. Assessment & Plan (05/30/2017 9:36 AM GTA): Lipid abnormalities are unchanged. Pharmacotherapy as ordered. Lipids will be reassessed in 6 months Had labs from rheumatology done at [facility]. We will check for results, as I do not see them today. Gout 09/05/2013 Overview (09/30/2016): Gout Wen's esophagus 09/05/2013 Overview (11/29/2016): Barretts esophagus Assessment & Plan (12/24/2023 8:35 PM CDT): Annual EGD's since 2017 for long segment of Barretts esophagus C4M5 without dysplasia Most recent EGD from 12/2020 showed normal esophagus, gastric bypass pouch 4.5 cm in length with healthy-appearing GJ anastomosis. Reflux well controlled with pantoprazole 40 mg BID Plan Schedule EGD for Wen's surveillance Continue pantoprazole 40 mg BID Assessment & Plan (02/10/2018 6:31 PM CDT): Zantac was on patient's medication list but she states that she has not taken this in quite awhile. He was never renewed and she was not sure why. I told her I am going to restart her on the Zantac and then she has a follow-up appointment with GI later this month. Rheumatoid arthritis 09/05/2013 Overview (04/23/2022): DEXA 04/17 FINDINGS: AP LUMBAR SPINE L1-L4: Total BMD is 0.846 g/cm2 T-score is -1.8 LEFT HIP: Total BMD is 0.727 g/cm2 T-score is -1.8 Femoral neck BMD is 0.677 g/cm2 T-score is -1.5 Assessment & Plan (06/12/2023 1:48 PM GTA): Has established with Dr. Rosenthal. She has multiple medications. I do not have anything to add at this time. Continue current medication. F/u as scheduled with rheumatology Fibrositis 09/05/2013 Overview (10/01/2016): Fibromyalgia Mixed stress and urge urinary incontinence 05/04 Assessment & Plan (07/27/2022 8:54 PM GTA): Refer back to urogynecology to reschedule surgery Assessment & Plan (11/11/2021 1:12 PM CDT): Stress vs overflow incontinence. Will get a urine to rule out UTI. If negative, can do trial with oxybutynin. If no improvement consider eval by urology Resolved Problems Problem Noted Date Diagnosed Date Resolved Date Discoloration of skin of mul tiple sites of lower extremity 12/07/2022 08/31/2023 Cellulitis of nasal tip 10/06/2022 03/0 11/2023 Assessment & Plan (10/06/2022 9:21 AM CDT): Prescription medications sent to Pharmacy today: Bactroban apply pea-size amount into each nostril with a cotton tipped applicator, being carefully just to tuck it into each nostril, then massage soft portion of the outer nose to massage the ointment around inside the nose three times daily for 2 weeks then Aquaphor ointment into each nostril twice daily for 6 weeks Cetirizine 10 mg daily (Zyrtec) Call if no improvement Consider adding nasal saline if no improvement Viral upper respiratory tract infection 04/10/2022 07/27/2022 Assessment & Plan (04/10/2022 7:24 PM CDT): Flu swab negative in office. Will send for covid swab. If negative and symptoms persist, will consider antibiotics or treatment as needed. Nasal sore 04/10/2022 08/31/2023 Assessment & Plan (07/27/2022 7:57 AM GTA): Refer to ENT. Assessment & Plan (04/10/2022 7:20 PM CDT): This has been chronic. We have tried mupirocin and antibiotics in the past and she is still dealing with the sore. Will refer to dermatology to r/o underlying pathology Hordeolum externum of right upper eyelid 02/09/2022 04/10/2022 Assessment & Plan (02/09/2022 2:31 PM CDT): Right eye stye with drainage and irritation of eye. Will treat with erythromycin ophthalmic ointment. Warm packs. Dog bite of left hand without complication 02/09/2022 04/10/2022 Assessment & Plan (02/09/2022 2:33 PM CDT): Continue good wound care. Keflex tid x 10 days. Call if any concerns. F/u as needed. Palpitations 01/01/2022 04/10/2022 Assessment & Plan (01/01/2022 3:00 PM CDT): Asymptomatic at time the EKG was performed. Patient was asymptomatic at time of exam. Referred to Cardiology, labs have been ordered, will follow. Patient strongly encouraged to go to nearest emergency room should this happen again. Small bowel obstruction 12/04/2020 06/0 11/2022 COVID-19 12/17/2019 11/30/2022 Assessment & Plan (12/17/2019 11:54 AM CDT): Stable. She is aware to go to ER for shortness of breath, chest pain, worsening of symptoms. Discussed course of illness, expected and unexpected. Knows to quarantine until symptom free. Will call office if any other questions or needs arise. Offered to f/u in another week, but pt denies need at this time. May f/u prn Acute cystitis with hematuria 09/16/2019 03/13/2020 Assessment & Plan (09/16/2019 12:44 PM CDT): Laboratory: Urine dipstick shows 1+ for leukocyte esterase. 1. Medications: keflex 2. Maintain adequate hydration 3. Follow up if symptoms not improving, and prn. Cat bite of right hand 12/02/201702/08 Cellulitis of finger of right hand 11/21/2017 02/08/2018 Assessment & Plan (11/21/2017 8:08 PM CDT): Secondary to cat bite: Discussed with Dr. Chauhan who also assessed hand. Concern since she is on methotrexate and humira. Will start augmentin and discussed S/S of worsening cellulitis for which she should go to ER - fever, increased pain, redness, swelling- in next 24-48 hours. Called [facility] Dept. And discussed unknown cat bite. They may recommend rabies vaccine. Recommended to have patient call them directly. Patient called via Adilia Hurst MA and information was related to patient. Vertigo 05/30/2017 04/10/2022 Assessment & Plan (05/30/2017 9:28 AM GTA): May continue meclizine. May add antihistamine daily if needed. Herpes zoster without complication 03/22/2017 05/30/2017 Assessment & Plan (03/22/2017 7:58 AM CDT): Patient does not wish to be on prednisone. I gave her Valtrex for 7 days. Hydrocodone for pain p.r.n.. Follow up as needed Polyp of colon 11/29/2016 11/30/2022 Dysphagia 11/29/2016 05/30/2017 Obesity with body mass index 30 or greater 06/17/2015 05/11/2021 Overview (09/30/2016): BMI 30+ - obesity Edema 11/10/2013 11/29/2016 Overview (09/30/2016): EDEMA Adiposity 11/10/2013 10/31/2020 Overview (10/01/2016): OBESITY NOS Postoperative state 09/05/2013 11/30/19 17 Overview (10/01/2016): History of gastric bypass Hypertension 05/01/2012 11/11/2021 Overview (10/01/2016): Hypertension Assessment & Plan (05/11/2021 1:44 PM GTA): Stable. No longer on medication for hypertension since weight loss. Will continue to monitor Assessment & Plan (12/01/2020 1:13 PM CDT): Will keep her off triamterene/hctz. Will continue to mointor blood pressure and swelling. May need to add back in if needed. Recommended she check blood pressure outside the office and monitor. F/u 6 months. Assessment & Plan (10/13/2020 2:34 PM CDT): Blood pressure well controlled. Will have her stop the triamterene/hctz. Monitor blood pressure at home. F/u 1 month for recheck. Assessment & Plan (09/11/2018 8:36 PM CDT): Hypertension is improving with treatment. Continue current treatment regimen. Blood pressure will be reassessed 6 months. Assessment & Plan (05/30/2017 9:35 AM GTA): BP is on the lower side today. She hasn't taken bystolic yet today, so we told her to hold it. BP typically runs 120's/80's at home. She continues to follow up with cardiology, who prescribes the bystolic Immunizations Immunization Administration Dates Next Due Influenza, Quadrivalent, Hig h Dose, Preservative Free, Intrr 06/08/2023,07/27/2022 Influenza, Quadrivalent, Spl it, Intramuscular 07/27/2016 Influenza, Quadrivalent, Spl it, Preservative Free, Intramuscular 05/11/2021,04/09/2019 Influenza, Trivalent, High D ose, Split, Preservative Free, Intramuscular 05/15/2024 Influenza, Trivalent, IM (MDV) 03/29/2014,2008 Influenza, Unspecified 03/27/2020(Deferr ed: Patient Refused),05/30/2017(Deferred: Patient Refused),07/27/2012 Moderna SARS-CoV-2 Monovalen t Vaccination (12+ YRS) 11/14/2020,10/14/2020 Pneumococcal Conjugate Pcv20 07/27/2022 Pneumococcal, Unspecified 04/07/2022(Deferred: P atient Refused) Rabies Chicken Embryo IM Vaccine 018,12/02/2017,11/23/2017,11/21,11/18/2017 Rabies Immune Globulin 11/18/2017 Td, adsorbed 02/09/2008 Tdap 11/18/2017,01/08/2016 Social History Tobacco Use Types Packs/Day Years Used Date Smoking Tobacco: Former Cigarettes 0.5 23 0 06/27/1972 - 06/26/1995 Smokeless Tobacco: Never Tobacco Cessation:Counseling Given: Not Answered Comments:Smoking History Packs/day: 0.5 Packs Alcohol Use Standard Drinks/Week Comments Yes 0 (1 standard drink = 0.6 oz pur e alcohol) AUDIT-C Answer Date Recorded Q1: How often do you have a drink containing alcohol? Never 05/08/2024 Q2: How many drinks containi ng alcohol do you have on a typical day when you are drinking? Patient does not drink Q3: How often do you have si x or more drinks on one occasion? Never 05/08/2024 PHQ-2 Answer Date Recorded PHQ-2 Total Score (If total score is 3 or more points, staff should administer the PHQ-9) 0 05/15/2024 Personal Safety Answer Date Recorded Have you ever been in or are you currently in a harmful physical or emotional relationship or is someone making you feel afraid or unsafe? 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 Not on file Not on file Last Filed Vital Signs Vital Sign Reading Time Taken Comments Blood Pressure 129/87 11/23/2024 9:46 AM CDT Pulse 71 11/23/2024 9:46 AM CDT Temperature 36.6 C (97.9 F) 09/18/2024 2:40 PM CDT Respiratory Rate 18 09/18/2024 2:40 PM CDT Oxygen Saturation 97% 11/23/2024 9:46 AM CDT Inhaled Oxygen Concentration - - Weight 73 kg (161 lb) 11/29/2024 3:01 PM CDT Height 170.2 cm (5' 7) 11/29/2024 3:01 PM CDT Body Mass Index 25.22 11/29/2024 3:01 PM CDT Plan of Treatment Not on file Procedures Procedure Name Priority Date/Time Associated Diagnosis Comments SCREENING MAMMOGRAM BILATERAL W CAR Schedule Routine, Read Routine (OP Routine) 11/29/2024 3:09 PM CDT Visit for screening mammogram DEXA AXIAL SKELETON BONE DENSITY 1 OR MORE SITES Schedule Routine, Read Routine (OP Routine) 06/04/2024 9:30 AM GTA Encounter for osteoporosis screening in asymptomatic postmenopausal patient COLONOSCOPY 05/09/2024 7:11 AM GTA HEPATITIS C ANTIBODY Routine 03/20/2020 11:09 AM CDT from Last 3 Months or Most Recently Relevant to Health Maintenance Results * Screening Mammogram Bilateral W Car (11/29/2024 3:09 PM CDT) Anatomical Region Laterality Modality Breast Bilateral Mammography Impressions 11/29/2024 3:18 PM CDT Bilateral No evidence of malignancy in either breast. OVERALL BI-RADS FINAL ASSESSMENT: 1 - Negative RECOMMENDATION: Recommend bilateral annual screening mammography. Narrative 11/29/2024 3:18 PM CDT EXAMINATION: Screening Mammogram Bilateral W Car: 11/29/2024 COMPARISON: Relevant prior outside studies available at the time of interpretation were reviewed. TECHNIQUE: Mammography was performed with 2D and digital breast tomosynthesis (DBT) images. CAD was utilized. BREAST PARENCHYMAL COMPOSITION: There are scattered areas of fibroglandular density. FINDINGS: Bilateral There is no suspicious mass, calcification, or architectural distortion in either breast. There has been no suspicious change. Radha Wood NP IMG MAMMO PROCEDURES Final Re sult * Dexa Axial Skeleton Bone Density 1 or 2 Site (06/04/2024 9:30 AM GTA) Anatomical Region Laterality Modality Body N/A Other 06/04/2024 9:44 AM GTA Impressions 06/04/2024 9:44 AM GTA Osteopenia. Consider follow-up bone densitometry evaluation in 2-3 years. Electronically signed by: Nelson Perdomo M.D. Narrative 06/04/2024 9:44 AM GTA EXAMINATION: DEXA AXIAL SKELETON BONE DENSITY 1 OR MORE SITES DATE: 06/04/2024 9:30 AM HISTORY: 69 oikud-vfrk-ftu postmenopausal woman; post-menopausal osteoporosis prevention Osteoporosis screening COMPARISON: 04/22/2022 FINDINGS: The bone densitometry of the L1-L4 region, the left femoral neck and the total hip was calculated using dual-energy x-ray absorptiometry. Bone mineral density (BMD) of the lumbar spine (L1-L4): T-score -1.9, previously -1.8 Bone mineral density (BMD) of the femoral neck: T-score -1.1, previously -1.5 Bone mineral density (BMD) of the total hip: T-score -1.3, previously -1.8 Procedure Note Nelson Perdomo MD - 06/04/2024 EXAMINATION: DEXA AXIAL SKELETON BONE DENSITY 1 OR MORE SITES DATE: 06/04/2024 9:30 AM HISTORY: 69 yretn-wort-uev postmenopausal woman; post-menopausal osteoporosis prevention Osteoporosis screening COMPARISON: 04/22/2022 FINDINGS: The bone densitometry of the L1-L4 region, the left femoral neck and the total hip was calculated using dual-energy x-ray absorptiometry. Bone mineral density (BMD) of the lumbar spine (L1-L4): T-score -1.9, previously -1.8 Bone mineral density (BMD) of the femoral neck: T-score -1.1, previously -1.5 Bone mineral density (BMD) of the total hip: T-score -1.3, previously -1.8 IMPRESSION: Osteopenia. Consider follow-up bone densitometry evaluation in 2-3 years. Electronically signed by: Nelson Perdomo M.D. Teresa Koehler NP IM DXA PROCEDURES Final Result * Colonoscopy (05/09/2024 7:11 AM GTA) Anatomical Region Laterality Modality Other Narrative Procedure Note Daniel Bahena DO - 05/09/2024 7:11 AM CST [facility] Patient Name: Emmie Stokes Procedure Date: 05/09/2024 7:11 AM Date of : 1955 Admit Type: Outpatient Age: 69 Gender: Female Attending MD: Daniel Bahena D.O. Room: [facility] ENDOSCOPY ROOM 3 Note Status: Finalized Patient Profile: Refer to note in patient chart for documentation of history and physical. Procedure: Colonoscopy Indications: High risk colon cancer surveillance: Personalhistory of colonic polyps, High risk colon cancer surveillance: Ulcerative pancolitis of 8 (or more) years duration, Last colonoscopy: 2016 Referring MD: Harper Huddleston Providers: Daniel Bahena D.O. Impression: - The examined portion of the ileum was normal. - The entire examined colon is normal. Biopsied. Recommendation: - Discharge patient to home. - Resume previous diet. - Continue present medications. - Await pathology results. - Repeat colonoscopy in 5 years for surveillance. - Return to primary care physician PRN. - Return to GI office in 1 year. Medicines: Monitored Anesthesia Care Complications: No immediate complications. Estimated Blood Loss: Estimated blood loss was minimal. Procedure: Pre-Anesthesia Assessment: - As per anesthesia. The benefits, risks and alternatives of theprocedure and sedation were discussed and informed consentwas obtained. All questions were answered. Please referto the signed informed consent document in the medical record. The bowel preparation used was Miralax and bisacodyl tablets via extended prep with split dose instruction. The scope was passed under directvision. The Pediatric Colonoscope [id number] was introduced through the anus and advanced to the 5cm into the ileum. The terminal ileum, the appendiceal orifice and the rectum were photographed. Theentire colon was well visualized. The colonoscopy was performed without difficulty. The patient tolerated the procedure well. The quality of the bowel preparation was good. Findings: The perianal and digital rectal examinations were normal. The terminal ileum appeared normal. The colon (entire examined portion) appeared normal. This wasbiopsied with a cold forceps for histology. No additional abnormalities were found on retroflexion. Electronically signed by Daniel Bahena M.D. Danile Bahena D.O. 05/09/2024 8:28:10 AM Number of Addenda: 0 Note Initiated On: 05/09/2024 7:11 AM Procedure Code(s): --- Professional --- 82593, Colonoscopy, flexible; with biopsy, single or multiple --- Technical --- 20501, Colonoscopy, flexible; with biopsy, single or multiple Diagnosis Code(s): --- Professional --- Z86.010, Personal history of colonic polyps K51.00, Ulcerative (chronic) pancolitis without complications --- Technical --- Z86.010, Personal history of colonic polyps K51.00, Ulcerative (chronic) pancolitis without complications CPT copyright 2020 [employer]. All rights reserved. The codes documented in this report are preliminary and upon mold carrier reviewmay be revised to meet current compliance requirements. Recognized by the [employer] for promoting quality in endoscopy Daniel Bahena DO ENDOSCOPY PROCEDURES Final Res ult * Hepatitis C antibody (03/20/2020 11:09 AM CDT) Hep C Ab <0.1 0.0 - 0.9 s/co ratio [facility] - 01 Comment: Negative: < 0.8 Indeterminate: 0.8 - 0.9 Positive: > 0.9 The CDC recommends that a positive HCV antibody result be followed up with a HCV Nucleic Acid Amplification test (318226). 03/20/2020 11:0 9 AM CDT 03/20/2020 Narrative [facility] - 03/21/2020 7:09 AM CDT Performed at: [address] [place] [id number] Burner Hand: Gus Champagne PhD, Phone: [phone] Radha Wood NP LAB MICROBIOLOGY - GENERAL OR DERABLES Final Result [facility] - 01 from Last 3 Months or Most Recently Relevant to Health Maintenance Insurance [employer] MEDICARE [facility] [address] [place] [id number] [facility] TNA [facility]IC[facility] Advance Directives For more information, please contact: [phone] * Full Code (Latest Code Status on File) Date Activated Date Inactivated Comments 05/09/2024 7:15 AM 05/09/2024 12:54 PM * Full Code Date Activated Date Inactivated Comments 05/09/2024 7:15 AM 05/09/2024 7:15 AM * Full Code Date Activated Date Inactivated Comments 03/02/2024 7:40 AM 03/02/2024 2:25 PM * Full Code Date Activated Date Inactivated Comments 03/02/2024 7:40 AM 03/02/2024 7:40 AM Care Teams Registration Specialist Relationship Specialty Start Date End Date Radha Wood NP [address] [address] PCP - General Family Medicine 12/06/24 Altaf Gomez MD [address] [facility] [address] [address] Consulting Physician Rheumatology 12/31/21 Roxanne Ramirez MD [address] [place] [address] Bi Developer Obstetrics and Gynecology 12/31/21
--- OUTSIDE RECORDS SUMMARY | 2025-01-24 11:05 | XMS_ITS | Encounter Summary ---
Author Organization [facility] Healthcare Address [address] [place] [address] Care Team Providers Care Solvent Plant Operator Name Role Phone Altaf Gomez MD Unavailable Roxanne Ramirez MD Unavailable [phone] Radha Wood NP Primary Care Provider Reason for Visit * Reason Onset Date Comments Eye Problem 01/24/2025 Encounter Details Date Type Department Care Team (Late st Contact Info) Description 01/24/2025 Nurse Triage [facility] Primary Care at [address] [address] Radha Wood NP [address] [place] [address] [address] [place] [address] Social History Tobacco Use Types Packs/Day Years Used Date Smoking Tobacco: Former Cigarettes 0.5 23 0 06/27/1972 - 06/26/1995 Smokeless Tobacco: Never Comments:Smoking History Pac ks/day: 0.5 Packs Alcohol [...] on file Legal Sex Female 12:41 AM [employer] Gender Identity Not on file Sexual Orientation Not on file 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 Pt rubbed eye quite a bit and tried to clear it out. When Pt arrived home that evening she noticed her vision was hazy. Today upon waking Pt states her eye was glued shut, swollen, pink, red and blue with drainage gluing eye closed. Pt used warm compress and eye is open and tender. Sclera is white. Disposition Go to Office Now No appts avail Offered CC and Pt states she will go to local Reason for Disposition SEVERE eyelid swelling on one side that is red and painful (or tender to touch) Protocols Used Eyelid Sfuvgzoa-Rvjaj-BH * Telephone Encounter - Vandana Meza RN - 01/24/2025 10:11 AM CDT Regarding: Foggy vision, left eye, swollen shut, bruised ----- Message from Alana Neal sent at 01/24/2025 9:53 AM CDT ----- Symptom Based Call Chief Complaint(s): Foggy vision, left eye, swollen shut, bruised Duration: last night What type of symptom(s) is the patient experiencing? Red Flag. Is the patient concerned they are experiencing a medical emergency requiring an ambulance? No Additional Comments: Pt says she woke up with eye matted shut. Does message need to be routed? Yes-Action Needed documented in this encounter Plan of Treatment Not on file documented as of this encounter Visit Diagnoses Not on filedocumented in this encounter Care Teams Solvent Plant Operator Relationship Specialty Start Date End Date Radha Wood NP [address] [address] PCP - General Family Medicine 12/06/24 Altaf Gomez MD [address] [facility] [address] [place] [address] [place] [id number] Consulting Physician Rheumatology 12/31/21 Roxanne Ramirez MD [address] [place] [address] Magician Helper Obstetrics and Gynecology 12/31/21 documented as of this encounter
--- OUTSIDE RECORDS SUMMARY | 2025-01-24 11:05 | XMS_ITS | Clinical Summary ---
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 Will obtain recent labs from rework operator office Assessment & Plan (08/31/2023 3:29 PM WEL[employer]BINATION): CBC CMP and urinalysis will be done [...] ordered. Incomplete right bundle branch block (RBBB) 01/2022 Assessment & Plan (01/01/2022 2:59 PM CDT): Abnormal EKG, referred on to cardiology for further evaluation management. Slow transit constipation 05/11/2021 Assessment & Plan (05/11/2021 1:43 PM [employer]BINATION): Gave copy of constipation guidelines. Recommended milk of magnesia in Prune juice warmed up. Recommended MiraLax daily. Moderate episode of recurrent major depressive d isorder 03/07/2019 Assessment & Plan (06/12/2023 1:47 PM [employer]BINATION): Stable. Continue duloxetine. Assessment & Plan (11/30/2022 4:03 PM CDT): Stable on current medication. Continue duloxetine and fluoxetine as ordered. May follow up in 6 months Assessment & Plan (07/27/2022 8:54 PM [employer]BINATION): Stable on current medication. Seeing Tasia Matthews, psychiatrist. Assessment & Plan (04/10/2022 7:21 PM CDT): Stable. Sees psychiatry. Refilled fluoxetine Assessment & Plan (05/11/2021 1:47 PM WEL[employer] COMBINATION): Stable on current medication. Continue lorazepam and duloxetine and Prozac. as ordered. May follow up in 6 months Assessment & Plan (05/16/2019 9:26 AM WEL[employer]BINATION): Improving. She has been able to make [...] 12/02/2017 Assessment & Plan (06/12/2023 1:50 PM [employer]): -Recommended: Healthy, prudent diet. Avoiding junk food/fast [...] not had a hysterectomy (does have a glass edger), -Periodic blood pressure monitoring, & bone-density testing [...] medications. Assessment & Plan (06/14/2018 4:32 PM W[employer] COM[employer]ATION): Will continue Prozac at current dosage. Discuss [...] 11/29/2016 Assessment & Plan (06/12/2023 1:46 PM [employer]ATION): Stable. It is improved with restoril 15mg. [...] bedtime. Will continue current medications.I checked their [place] [employer]IEF sheet, and it was consistent with prescribed medications. Assessment & Plan (07/27/2022 8:59 PM [employer]ATION): Continues restoril at bedtime which was helping. [...] Gomes Assessment & Plan (05/11/2021 1:48 PM [employer]): Continues on temazepam at bedtime. I checked their [place] [employer]IE[employer] sheet, and it was consistent with prescribed [...] NEC/NOS Assessment & Plan (06/12/2023 1:47 PM W[employer]ATION): Lipid abnormalities are stable. Pharmacotherapy as ordered. Lipids will be reassessed in 6 months. Assessment & Plan (11/30/2022 4:05 PM CDT): Patient is not currently on medication. Her lipid panel is normal with an LDL of 80. She is going to see Dr. Soria, cardiology. Assessment & Plan (07/27/2022 8:54 PM WEL[employer] COMBINATION): Lipid abnormalities are stable, reviewed previous lipid levels in [facility]. Pharmacotherapy as ordered. Order for lipid panel was given today to be obtained. Pt voiced understanding of lab drawn and continuation of current medication regimen. Assessment & Plan (11/11/2021 1:12 PM CDT): Stable - continue current regimen - will recheck labs Assessment & Plan (05/11/2021 1:43 PM W[employer]ATION): Stable. Last lipid panel in January 2021. No longer on medication. Will continue to monitor Assessment & Plan (10/13/2020 2:35 PM CDT): Lipid abnormalities are stable, reviewed previous lipid levels in [facility]. Diet controlled - with weight loss since [...] well. Assessment & Plan (05/30/2017 9:36 AM W[employer]ATION): Lipid abnormalities are unchanged. Pharmacotherapy as ordered. Lipids will be reassessed in 6 months Had labs from rheumatology done at [place]. We will check for results, as I do not see them today. Gout 09/05/2013 Overview (09/30/2016): Gout Wen's esophagus 09/05/2013 Overview (11/29/2016): Barretts esophagus Assessment & Plan (12/24/2023 8:35 PM CDT): Annual EGD's since 2016 for long segment [...] -1.5 Assessment & Plan (06/12/2023 1:48 PM WEL[employer]ATION): Has established with Dr. Rosenthal. She has multiple medications. I do not have anything to add at this time. Continue current medication. F/u as scheduled with rheumatology Fibrositis 09/05/2013 Overview (10/01/2016): Fibromyalgia Mixed stress and urge urinary incontinence 05/04 Assessment & Plan (07/27/2022 8:54 PM W[employer]ATION): Refer back to urogynecology to reschedule surgery [...] 08/31/2023 Assessment & Plan (07/27/2022 7:57 AM W[employer]): Refer to ENT. Assessment & Plan (04/10/2022 [...] redness, swelling- in next 24-48 hours. Called [facility]. And discussed unknown cat bite. They may recommend rabies vaccine. Recommended to have patient call them directly. Patient called via Adilia Hurst MA and information was related to patient. Vertigo 05/30/2017 04/10/2022 Assessment & Plan (05/30/2017 9:28 AM [employer]): May continue meclizine. May add antihistamine daily [...] (10/01/2016): OBESITY NOS Postoperative state 09/05/2013 11/30/19 Overview (10/01/2016): History of gastric bypass Hypertension 05/01/2012 11/11/2021 Overview (10/01/2016): Hypertension Assessment & Plan (05/11/2021 1:44 PM W[employer]ATION): Stable. No longer on medication for hypertension [...] months. Assessment & Plan (05/30/2017 9:35 AM W[employer]): BP is on the lower side today. She hasn't taken bystolic yet today, so we told her to hold it. BP typically runs 120's/80's at home. She continues to follow up with cardiology, who prescribes the bystolic Encounters Date Type Department Care Team Description 01/24/2025 Nurse Triage [facility] Primary Care at [address] [address] Radha Wood NP 11/29/2024 2:55 PM CDT - 11/29/2024 11:59 PM CDT Hospital Encounter [address] [address] Discharge Disposition: Discharge to home or self care 11/29/2024 Results Follow-Up [facility] Primary Care at [address] [address] Teresa Koehler NP Screening Mammogram Bilateral W Car 11/23/2024 10:00 AM CDT Office Visit [facility] [address] [place] [address] [address] [place] [address] Lena Brito MD Psychophysiological insomnia (Primary Dx); KRYS (obstructive sleep apnea); Hypersomnia with sleep apnea from Last 3 Months Immunizations Immunization Administration Dates Next Due Influenza, [...] Globulin 11/18/2017 Td, adsorbed 02/09/2008 Tdap 11/18/2017,01/08/2016 Surgical History Surgery Date Site/Laterality Comments GASTRIC BYPASS 06/27/2007 - 06/26/2008 Gastric bypass BLADDER PLICATION bladder plication CHOLECYSTECTOMY 06/27/2000 - 06/26/2001 Cholecystectomy BARIATRIC SURGERY 06/27/2007 - 06/26/2008 bariatric surgery DILATION AND CURETTAGE OF UTERUS 7 - 06/26/2017 Hysteroscopy, D&C, vaginal polypectomy - postmenopausal bleeding -- benign CYSTOCELE REPAIR 06/27/2012 - 06/26/2013 Cystocele, rectocele, IAM: anterior/posterior repair with graft, TOT ORAL SURGERY 06/27/2013 - 06/26/2014 Torii: oral surgery FOOT SURGERY left foot fx CYSTOSCOPY 04/27/2019 - 05/26/2019 with removal eroded vaginal mesh, Dr. De La Cruz. COLONOSCOPY patient had colonoscopy 7 years ago, was supposed to follow up in 10 years but is having some pain and constipation, so made earlier appointment ESOPHAGOGASTRODUODENOSCOPY COLONOSCOPY 05/09/2024 SMALL INTESTINE SURGERY 2020 Medical History Medical History Date Comments Rheumatoid arthritis (HCC) Rheum atoid arthritis Gout Gout KRYS (obstructive sleep apnea) Small bowel obstruction (HCC) 12/04/2020 Covid-19 12/17/2019 Obesity GERD (gastroesophageal reflux disease) HTN (hypertension) HLD (hyperlipidemia) Adenomatous colon polyp Fibromyalgia UC (ulcerative colitis) (HCC) Wen's esophagus H. pylori infection Thiamine deficiency Vitamin E deficiency Splenic vein thrombosis Depression Autoimmune disease Family History Medical History Relation Name Comments Cancer Brother Ravinder Alexandra Other Brother Ravinder Alexandra meiniers; Arthritis Father Erickson Alexandra Cancer Father Erickson Alexandra Cancer, unkn own; Coronary artery disease Father Erickson Alexandra C oronary artery disease; Diabetes Father Erickson Alexandra Diabetes leon litus; /Diabetes; Diabetes type II Father Erickson Alexandra Diabetes -Type 2; Other Father Erickson Alexandra ? CVA at age 85; Rheum arthritis Father Erickson Alexandra Rheumatoi d arthritis; Skin cancer Father Erickson Alexandra cancer, skin ; Osteoporosis Maternal Grandmother Osteopo rosis; Breast cancer Mother Flower Alexandra Cancer -breas t; /Cancer, breast; Cancer Mother Flower Alexandra Cancer, unknow n; Hypertension Mother Flower Alexandra Hypertension; Osteoporosis Mother Flower Alexandra Osteoporosis; Other Other 1 Family history of celiac dz; Gout Other 2 Family history of Gout; Relation Name Status Comments Brother Ravinder Alexandra Maternal Grandmother Mother Flower Alexandra Other 1 Other 2 Social History Tobacco Use Types Packs/Day Years [...] on file Legal Sex Female 12:41 AM [employer] Gender Identity Not on file Sexual Orientation Not on file 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 file Not on file Not on file Obstetrics History Para Term AB IAB SAB Ectopic Multiple Livin g Live Births 3 3 3 0 0 3 Date Outcome GA Total Labor Labor/2nd/3rd Weight Sex Type Anes PTL Nicolle A1 A5 Name Clin Term Term Term Last Filed Vital Signs Vital Sign Reading [...] 11/29/2024 3:01 PM CDT Plan of Treatment Health Maintenance Due Date Last Done Comments Hepatitis B Screening 1975 Zoster Vaccine (1 of 2) 02/06/1976 Covid-19 Vaccine (3 - Modern a risk series) 12/12/2020 11/14/2020, 10/14/2020 Well Visit 65+ 06/08/2024 06/08/2023, 06/0 11/2021, 10/31/2020, Additional history exists Influenza Vaccine (#1) 2025 , 06/08/2023, 07/27/2022, Additional history exists Fall Risk Assessment 03/02/2025 03/02/2024, 08/31/2023, 06/08/2023, Additional history exists Depression Screening 05/15/2025 05/15/2024, 08/31/2023, 06/08/2023, Additional history exists Breast Cancer Screening-Mammogram 11/29/2025 11/29/2024, 07/21/2022, 05/18/2021, Additional history exists Osteoporosis Screening-Bone Density Scan 06/04/2026 06/04/2024, 04/22/2022 DTaP/Tdap/Td Vaccine (3 - Td or Tdap) 11/19/2027 11/18/2017, 01/08/2016, 02/09/2008 Colon Cancer Screening-Colonoscopy 05/09/2034 05/09/2024, 10/24/2016 Hepatitis C Screening Completed 03/20/2020 Pneumococcal vaccine 65+ Completed 07/27/2022 Colon Cancer Screening-CT Colonography Discontinued 05/09/2024, 03/02/2024, 10/24/2016 Colon Cancer Screening-DNA Stool Discontinued 05/09/2024, 03/02/2024, 10/24/2016 Colon Cancer Screening-FIT Discontinued 05/09, 03/02/2024, 10/24/2016 Colon Cancer Screening-Sigmoidoscopy Discontinued 05/09/2024, 03/02/2024, 10/24/2016 Lung Cancer Screening Discontinued Procedures Procedure Name Priority Date/Time Associated Diagnosis Comments SCREENING MAMMOGRAM BILATERAL W CAR Schedule Routine, Read Routine (OP Routine) 11/29/2024 3:09 PM CDT Visit for screening mammogram DEXA AXIAL SKELETON BONE DENSITY 1 OR MORE SITES Schedule Routine, Read Routine (OP Routine) 06/04/2024 9:30 AM WELDER [employer] COMBINATION Encounter for osteoporosis screening in asymptomatic postmenopausal patient COLONOSCOPY 05/09/2024 7:11 AM [employer] HEPATITIS C ANTIBODY Routine 03/20/2020 11:09 AM [...] 1 or 2 Site (06/04/2024 9:30 AM WEL[employer] COMBINATION) Anatomical Region Laterality Modality Body N/A Other 06/04/2024 9:44 AM [employer] Impressions 06/04/2024 9:44 AM [employer] COMBINATION Osteopenia. Consider follow-up bone densitometry evaluation in 2-3 years. Electronically signed by: Nelson Perdomo M.D. Narrative 06/04/2024 9:44 AM W[employer]ATION EXAMINATION: DEXA AXIAL SKELETON BONE DENSITY 1 OR MORE SITES DATE: 06/04/2024 9:30 AM HISTORY: 69 [id number] postmenopausal woman; post-menopausal osteoporosis prevention Osteoporosis screening [...] SITES DATE: 06/04/2024 9:30 AM HISTORY: 69 [id number] postmenopausal woman; post-menopausal osteoporosis prevention Osteoporosis screening [...] by: Nelson Perdomo M.D. 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 Room: [facility] ENDOSCOPY ROOM 3 Note Status: Finalized Patient Profile: Refer to note in patient chart for documentation of history and physical. Procedure: Colonoscopy Indications: High risk colon cancer surveillance: Personalhistory of colonic polyps, High risk colon cancer surveillance: Ulcerative pancolitis of 8 (or more) years duration, Last colonoscopy: 2016 Referring MD: Haprer Huddleston Providers: Daniel Bahena D.O. Impression: - [...] passed under directvision. The Pediatric Colonoscope [id number] was introduced through the anus and advanced [...] retroflexion. Electronically signed by Daniel Bahena M.D. Daniel Bahena D.O. 05/09/2024 8:28:10 AM Number of Addenda: 0 Note Initiated On: 05/09/2024 7:11 AM Procedure Code(s): --- Professional --- 61012, Colonoscopy, flexible; with biopsy, single or multiple --- Technical --- 00579, Colonoscopy, flexible; with biopsy, single or multiple Diagnosis Code(s): --- Professional --- Z86.010, Personal history of colonic polyps K51.00, Ulcerative (chronic) pancolitis without complications --- Technical --- Z86.010, Personal history of colonic polyps K51.00, Ulcerative (chronic) pancolitis without complications CPT copyright 2020 [employer]. All rights reserved. The codes documented in this report are preliminary and upon rug weaver reviewmay be revised to meet current compliance requirements. Recognized by the [employer] for promoting quality in endoscopy Daniel Bahena DO ENDOSCOPY PROCEDURES Final Res ult * Hepatitis C antibody (03/20/2020 11:09 AM CDT) Pathologist [facility] Hep C Ab <0.1 0.0 - 0.9 s/co ratio [facility] - 01 Comment: Negative: < 0.8 Indeterminate: 0.8 - 0.9 Positive: > 0.9 The CDC recommends that a positive HCV antibody result be followed up with a HCV Nucleic Acid Amplification test (031432). 03/20/2020 11:0 9 AM CDT 03/20/2020 Narrative [facility] - 03/21/2020 7:09 AM CDT Performed at: [address] [place], [place] [address], [place], [place] [id number] Special Trackwork Blacksmith: Gus Champagne PhD, Phone: [phone] Radha Wood NP LAB MICROBIOLOGY - GENERAL OR DERABLES Final Result [facility] - 01 from Last 3 Months or Most Recently Relevant to Health Maintenance Insurance [employer] MEDICARE GOLD [address] [place] [address] [facility] [address] [place] [address] [facility] T[facility]ICARE [facility] Advance Directives For more information, please contact: [phone] * Full Code (Latest Code Status on File) Date Activated Date Inactivated Comments 05/09/2024 7:15 AM 05/09/2024 12:54 PM * Full Code Date Activated Date Inactivated Comments 05/09/2024 7:15 AM 05/09/2024 7:15 AM * Full Code Date Activated Date Inactivated Comments 03/02/2024 7:40 AM 03/02/2024 2:25 PM * Full Code Date Activated Date Inactivated Comments 03/02/2024 7:40 AM 03/02/2024 7:40 AM Care Teams Poultry Raiser Relationship Specialty Start Date End Date Radha Wood NP [address] [facility] [address] [place] [address] PCP - General Family Medicine 12/06/24 Altaf Gomez MD [address] [facility] [address] [address] Consulting Physician Rheumatology 12/31/21 Roxanne Ramirez MD [address] [place] [address] Lab Head Obstetrics and Gynecology 12/31/21
[2025-01-24] MEDS: FLUORESCEIN SOD 1 MG/STRIP LEFT EYE (11:19)
[2025-01-24] MEDS: DACRIOSE EYE IRRIGATION 118 ML BOTTLE 10 ML LEFT EYE (11:19)
[2025-01-24] MEDS: TETRACAINE HCL 0.5% OPHTH SOLN 4 ML BTL 1 DROP LEFT EYE (11:20)
--- NOTE | 2025-01-24 11:32 | ED.EYEPROB ---
HPI - Eye Problem General Chief complaint: Eye Problems Stated complaint: Left Eye Problem Time Seen by Provider: 01/24/25 11:09 Source: patient and RN notes reviewed Mode of arrival: ambulatory Limitations: no limitations History of Present Illness HPI Narrative: Patient presents today complaining of irritation and itching to the left eye last night while doing crafts at [employer]. This morning when she woke, she noted the eye to be swollen, matted with some mild blurred vision. She ran some shower water and applied a warm compress without much improvement. She wears glasses but no contacts. Visual acuity upon arrival was 20/25 in each eye. Patient takes methotrexate and sulfasalazine for rheumatoid arthritis/ulcerative colitis. Related Data Home Medications ?Medication ?Instructions ?Recorded ?Confirmed ?Last Taken ?Type diclofenac sodium 75 mg mg PO 01/24/25 Unknown History tablet,delayed release duloxetine 60 mg capsule,delayed mg PO 01/24/25 Unknown History release fluoxetine 20 mg capsule mg 01/24/25 Unknown History methotrexate sodium 2.5 mg tablet mg 01/24/25 Unknown History pantoprazole 40 mg tablet,delayed mg PO 01/24/25 Unknown History release sulfasalazine 500 mg tablet 01/24/25 Unknown History Allergies Allergy/AdvReac Type Severity Reaction Status Date / Time codeine Allergy Unknown Verified 06/06/16 14:25 Sulfa (Sulfonamide Allergy Unknown Verified 06/06/16 14:25 Antibiotics) [facility] Past Medical History Medical History (Updated 01/24/25 @ 11:35 by Teresa Munguia, [facility], ) Ulcerative colitis Rheumatoid arthritis Comments At time of signature, I have reviewed and agree with nursing past medical, surgical, social and family history unless otherwise noted. Please see nursing chart for further information. There is no relevant family history pertinent to the presenting complaint Exam Narrative: GENERAL: Well-appearing, well-nourished, and in no acute distress. HEAD: Normocephalic, atraumatic. EYES: EOMI. PERRL. Left eye: Upper and lower eyelids are mildly erythematous and edematous. Moderately injected conjunctiva with chemosis. No active drainage. Upon Wood's lamp exam, there is small fluorescein uptake just outside the iris at the 10 oclock position. ENT: Mucous membranes pink and moist. NECK: Normal AROM. CHEST: No respiratory distress. EXTREMITIES: Normal range of motion. No edema. SKIN: Warm, dry, no rash. Capillary refill normal. Normal skin turgor. NEURO: No focal deficits. Alert and oriented x3. Gait steady. PSYCH: Normal affect. No signs of depression or anxiety. Course Course Level of Care: Express Care Visit Vital Signs Vital signs: Vital Signs Temperature 98.1 F 01/24/25 11:04 Pulse Rate 64 01/24/25 11:04 Respiratory Rate 20 01/24/25 11:04 Blood Pressure 115/78 01/24/25 11:04 Pulse Oximetry 100 01/24/25 11:04 Oxygen Delivery Room Air 01/24/25 11:04 Temperature 98.1 F 01/24/25 11:04 Pulse Rate 64 01/24/25 11:04 Respiratory Rate 20 01/24/25 11:04 Blood Pressure 115/78 01/24/25 11:04 Pulse Oximetry 100 01/24/25 11:04 Oxygen Delivery Room Air 01/24/25 11:04 Reviewed Procedures Other Procedure Procedure 1: Other Procedure: Left eye was anesthetized with 1 drop of tetracaine and anesthesia was achieved. The eye was flushed with eye wash. Lid was inverted and examined. Moistened Qtip was used to sweep underneath the upper eyelid with 0 foreign bodies resulting. Cornea was dyed with fluorescein and 1 small corneal abrasion noted at the 10 o'clock position just outside the iris. Pt tolerated procedure well. MDM - Eye Problem MDM Narrative Medical decision making narrative: 69 year old male patient presents today complaining of left eye redness, swelling, watering since last night. Exam showing injected conjunctiva, chemosis, and small corneal abrasion. Prescription for polytrim sent to pharmacy. Recommend f/u with eye doctor if symptoms are not improving. Anticipatory guidance given. Vital signs stable. Differential Diagnosis Differential diagnosis: Likely corneal abrasion, conjunctivitis, periorbital cellulitis and corneal ulcer Critical Care Time Critical Care Time Critical Care Time: No Discharge Plan Discharge Clinical Impression: Corneal abrasion Qualifiers: Encounter type: initial encounter Laterality: left Qualified Code(s): S05.02XA - Injury of conjunctiva and corneal abrasion without foreign body, left eye, initial encounter Patient Disposition: Home Condition: Stable Instructions: Corneal Abrasion (DC) Additional Instructions: Your exam shows an abrasion on your cornea. Please use the eyedrops as directed. Take Tylenol for discomfort. Follow up with an eye doctor next week if symptoms are not improving. Patient Language: Citizen Of [place] Prescriptions: New polymyxin B sulf-trimethoprim 10,000 unit- 1 mg/mL drops 1 drp LEFT EYE QID 7 Days Qty: 10 0RF No Action sulfasalazine 500 mg tablet methotrexate sodium 2.5 mg tablet pantoprazole 40 mg tablet,delayed release (DR/EC) PO diclofenac sodium 75 mg tablet,delayed release (DR/EC) PO fluoxetine 20 mg capsule duloxetine 60 mg capsule,delayed release(DR/EC) PO Follow-up/Referrals: [place],CLARE Fernandez [Primary Care Provider] - Time of Disposition: 11:32
== END 2025-01-24 11:40 | disposition home or self-care (01) ==
PROVIDERS: Emergency Provider Nurse Practitioner; PCP Nurse Practitioner Family
DX: S05.02XA Injury of conjunctiva and corneal abrasion without foreign body, left eye, initial encounter (principal); Z79.899 Other long term (current) drug therapy; X58.XXXA Exposure to other specified factors, initial encounter
CPT/HCPCS: 99203; A9270; G0463